=== PATIENT | male | born 1985 | race African-American/Black ===

== ENCOUNTER 2016-11-11 14:42 | Emergency (ER) | payer BC ==
[~2016-11-11] VITALS: Ht 185.4 cm; Wt 90.7 kg
[2016-11-11 14:59] VITALS: BP 125/83
[2016-11-11] MEDS ORDERED: HYDROCODONE/APAP 5/325MG TABLET. PO ONE (16:00)
[2016-11-11] MEDS ORDERED: DIPHTH,PERTUSS(ACELL),TET TOX 0.5 ML DISP.SYRIN. VAX IM ONE (16:00)
[2016-11-11] MEDS ORDERED: LIDOCAINE 1% / SOD BICARB 8.4% 20 ML VIAL. IJ ONE (16:00)
--- NOTE | 2016-11-11 16:17 | PHYS DOC ---
Past Medical History Past Medical History: No Pertinent History Past Surgical History: No Surgical History Alcohol Use: Occasionally Drug Use: None Adult General Chief Complaint Chief Complaint: LACERATION/AVULSION HPI HPI Patient is a 30 year old male who presents with right lateral ankle laceration , patient states he was cutting fish when a knife fell off a counter top cutting him on the ankle. Review of Systems Review of Systems Constitutional: Denies fever or chills [] Musculoskeletal: Denies back pain or joint pain [] Integument: Right lateral ankle laceration Neurologic: Denies headache, focal weakness or sensory changes [] Endocrine: Denies polyuria or polydipsia [] Current Medications Current Medications Current Medications Medications (Trade) Dose Ordered Sig/Calista Start Time Stop Time Status Last Admin Dose Admin Acetaminophen/ Hydrocodone Bitart (Lortab 5/325) 1 tab 1X ONCE 11/11/16 16:00 11/11/16 16:01 DC 11/11/16 15:52 1 TAB Diphtheria/ Tetanus/Acell Pertussis (Boostrix) 0.5 ml ONCE ONCE 11/11/16 16:00 11/11/16 16:01 DC 11/11/16 15:54 0.5 ML Lidocaine/Sodium Bicarbonate (Buffered Lidocaine 1%) 20 ml 1X ONCE 11/11/16 16:00 11/11/16 16:01 DC 11/11/16 15:53 20 ML Allergies Allergies Allergies Coded Allergies Type Severity Reaction Last Updated Verified No Known Drug Allergies 11/11/16 No Physical Exam Physical Exam Constitutional: Well developed, well nourished, no acute distress, non-toxic appearance. [] Skin: Right lateral ankle with a laceration approximately 2 cm long, there is no obvious tendon involvement. Full range of motion to the right ankle. Adequate flexion and extension of the right foot. +2 right pedal pulse. Cap refill is less than right lower extremity. Sensation intact to the right lower extremity. Back: No tenderness, no CVA tenderness. [] Extremities: No tenderness, no cyanosis, no clubbing, ROM intact, no edema. [] Neurologic: Alert and oriented X 3, normal motor function, normal sensory function, no focal deficits noted. [] Psychologic: Affect normal, judgement normal, mood normal. [] Current Patient Data Vital Signs Vital Signs Date Time Temp Pulse Resp B/P Pulse Ox O2 Delivery O2 Flow Rate FiO2 11/11/16 14:59 98.8 91 20 100 Room Air 98.8 EKG EKG [] Radiology/Procedures Radiology/Procedures Indication: Right ankle laceration Procedure: The patient was placed in the appropriate position and anesthesia around the laceration was 1% buffered lidocaine. The area was then cleaned with 100 ML of normal saline and Betadine, the laceration was closed with 4 interrupted sutures using 4. 0 Ethilon. The wound area was then dressed with nonstick dressing and Total repaired wound length: Approximately 2 cm long Other Items: none The patient tolerated the procedure well Complications:none Course & Med Decision Making Course & Med Decision Making Pertinent Labs and Imaging studies reviewed. (See chart for details) Patient is in the ED with right thumb laceration was closed as noted in procedures. Tetanus is up-to-date. Provided wound care instructions as well as return precautions. Dragon Disclaimer Dragon Disclaimer This electronic medical record was generated, in whole or in part, using a voice recognition dictation system. Departure Departure Impression: Primary Impression: Laceration of ankle Disposition: 01 HOME, SELF-CARE Condition: STABLE Referrals: NO PCP (PCP) Follow-up with the ER or your primary care doctor in 7-10 days for suture removal Patient Instructions: Laceration Care, Adult Additional Instructions: You have a laceration that was closed with stitches, keep it clean and dry. Apply Neosporin to eat twice a day. Follow-up with your doctor or the emergency room in 7-10 days for suture removal Problem Qualifiers Primary Impression: Laceration of ankle Encounter type: initial encounter Laterality: right Qualified Code: S91.011A - Laceration without foreign body, right ankle, initial encounter [facility] Nov 11, 2016 16:17
== END 2016-11-11 16:50 | disposition home or self-care (01) ==
LOC: ER 14:42
DX: S91.011A Laceration without foreign body, right ankle, initial encounter (principal); W26.0XXA Contact with knife, initial encounter; Y93.89 Activity, other specified; Y92.89 Other specified places as the place of occurrence of the external cause; Y99.8 Other external cause status
CPT/HCPCS: 12001; 90471; 90715; 99283-25